=== PATIENT | male | born 1965 | race Caucasian/White ===

== ENCOUNTER 2019-04-23 12:07 | Inpatient (IN) | payer OTHER ==
[~2019-04-23] VITALS: Ht 182.9 cm; Wt 78.4 kg
[2019-04-23 12:08] VITALS: BP 105/61
[2019-04-23] MEDS ORDERED: LISINOPRIL2.5 MG PO (12:15)
[2019-04-23] MEDS ORDERED: ASA81BEC PO (12:15)
[2019-04-23] MEDS ORDERED: TOPROL XL25 MG PO (12:16)
[2019-04-23] MEDS ORDERED: LIPITOR40 MG PO (12:16)
[2019-04-23 12:26] LABS: BASOPHILS 0.7 % (0.0-2.0); EOSINOPHILS 2.3 % (0.0-3.0); HEMATOCRIT 45.1 % (42.0-52.0); HEMOGLOBIN 15.3 gm/dL (14.0-18.0); LYMPHOCYTES 30.2 % (24.0-44.0); MCH 31.4 pg (26.0-34.0); MCHC 33.8 g/dL (28.0-37.0); MCV 92.8 fL (80.0-100.0); MONOCYTES 8.2 % (1.0-8.0); PLATELET COUNT 223 thou/uL (150-400); POLYS 58.6 % (36.0-66.0); RBC 4.86 mil/uL (4.50-6.00); RDW 13.5 % (10.5-14.5); WBC 8.6 thou/uL (4.0-11.0)
[2019-04-23 12:37] LABS: ANION GAP 7 mmol/L (7-16); BUN 12 mg/dL (7-18); CHLORIDE 107 mmol/L (98-107); CO2 28 mmol/L (21-32); GLUCOSE 116 mg/dL (74-106); POTASSIUM 3.9 mmol/L (3.5-5.1); SODIUM 142 mmol/L (136-145)
[2019-04-23 12:47] LABS: ALBUMIN 3.5 g/dL (3.4-5.0); LIPASE 900 U/L (73-393); SGOT 26 U/L (15-37); SGPT 53 U/L (30-65); TOTAL BILIRUBIN 0.4 mg/dL (<0.1-1.0); TOTAL PROTEIN 7.2 g/dL (6.4-8.2); TROPONIN-I <0.06 ng/mL (<0.06)
--- NOTE | 2019-04-23 13:16 | EKG ---
[address] [place] [address] ELECTROCARDIOGRAM REPORT Name: MITUL MATHEW Room #: [facility] M.R.#: [id number] Admission: Attend Phys: Discharge: Date of : 69 Report #: [id number] THIS REPORT FOR: //name// [facility] ED Test Date: 2019-04-23 Test Time: 12:08:39 Pat Name: MITUL MATHEW Department: Room: Gender: M Bead Flipper: LUX : 1965 Requested By: Amira Navarrete Order Number: [id number] MD: Lm Burleson Measurements Intervals [place] Rate: 84 P: 90 PA: 179 QRS: 90 QRSD: 86 T: 67 QT: 388 QTc: 459 Interpretive Statements Sinus rhythm Borderline right axis deviation No previous ECG available for comparison Electronically Signed On 04-23-2019 13:15:47 BLUNGER MACHINE OPERATOR by Lm Burleson [email or web address] <ELECTRONICALLY SIGNED> By: Lm Burleson MD, [facility] 04/23/19 1315 1208 1208 Lm Burleson MD, FACC /EPI
--- NOTE | 2019-04-23 15:30 | EKG ---
[address] [place] [address] ELECTROCARDIOGRAM REPORT Name: MITUL MATHEW Room #: [facility] JANNET Hernandez#: [id number] Admission: 04/23/19 Attend Phys: Discharge: Date of : 69 Report #: [id number] THIS REPORT FOR: //name// [facility] ED Test Date: 2019-04-23 Test Time: 15:26:46 Pat Name: MITUL MATHEW Department: Room: Gender: Die Mounter: LUX : 1965 Requested By: Amira Navarrete Order Number: [id number] MD: Reggie Harrell Measurements Intervals [place] Rate: 72 P: 63 MO: 186 QRS: 86 QRSD: 87 T: 60 QT: 417 QTc: 457 Interpretive Statements Sinus rhythm Compared to ECG 04/23/2019 12:08:39 No significant changes Electronically Signed On 04-23-2019 15:30:02 FIRE PROTECTION ENGINEERING TECHNICIAN by Reggie Harrell [email or web address] <ELECTRONICALLY SIGNED> By: Reggie Harrell MD 04/23/19 1530 1526 1526 Reggie Harrell MD /DOMINGO
[2019-04-23 17:38] VITALS: BP 107/65
[2019-04-23 18:33] VITALS: BP 106/68
[2019-04-23 23:50] VITALS: BP 93/61
[2019-04-24 04:20] VITALS: BP 108/68
--- NOTE | 2019-04-24 05:05 | NUR ---
PT MAKING PROGRESS TOWARDS GOALS. INITIALLY REPORTED FEELING "QWEASY." THAT WAS RESOLVED WITH A DOSE OF ZOFRAN. INITIAL PAIN LEVEL OF HIS HEADACHE AND RUQ ABDOMINAL PAIN "PRESSURE" AND 8/10. PAIN DECREASED TO 5/10 (WHICH IS HIS GOAL) AFTER FIRST DOSE OF MORPHINE. SECOND DOSE OF MORPHINE GIVEN AT APPROXIMATELY MIDNIGHT FOR 7/10 ABD PAIN AND REDUCED TO 5/10 AFTER DOSE GIVEN. THIS AM PT REPORTING ABD PAIN IS STILL 5/10. DENIED ANY NAUSEA. "I FEEL HUNGRY AND I WANT SOME COFFEE."
[2019-04-24 05:41] LABS: HEMOGLOBIN 14.4 gm/dL (14.0-18.0); MCH 31.5 pg (26.0-34.0); MCHC 33.4 g/dL (28.0-37.0); MCV 94.3 fL (80.0-100.0); RBC 4.56 mil/uL (4.50-6.00); RDW 13.8 % (10.5-14.5); WBC 8.4 thou/uL (4.0-11.0)
[2019-04-24 05:52] LABS: ALBUMIN 2.9 g/dL (3.4-5.0); ANION GAP 6 mmol/L (7-16); BUN 11 mg/dL (7-18); CHLORIDE 109 mmol/L (98-107); CHOLESTEROL 135 mg/dL (<200); CO2 26 mmol/L (21-32); GLUCOSE 92 mg/dL (74-106); HDL CHOLESTEROL 30 mg/dL (>40); LDL CHOLESTEROL 89 mg/dL (<100); LIPASE 197 U/L (73-393); MAGNESIUM 2.2 mg/dL (1.8-2.4); POTASSIUM 4.6 mmol/L (3.5-5.1); SGOT 23 U/L (15-37); SGPT 46 U/L (30-65); SODIUM 141 mmol/L (136-145); TC:HDL 4.5 Ratio (Not establshd); TOTAL BILIRUBIN 0.4 mg/dL (<0.1-1.0); TOTAL PROTEIN 5.7 g/dL (6.4-8.2); TRIGLYCERIDE 83 mg/dL (<150); TROPONIN-I <0.06 ng/mL (<0.06); VLDL 17 mg/dL (<40)
[2019-04-24 06:38] LABS: SERUM ASSESSMENT Clear
[2019-04-24 08:00] VITALS: BP 99/71
[2019-04-24 15:55] VITALS: BP 103/64
--- NOTE | 2019-04-24 15:58 | NUR ---
0930 pt refuse morning meds. pt educated on rationale for meds, continue to refuse. MD ZAMORA aware. pt refuse most care throughout the shift. education reinforced.
[2019-04-24 18:02] VITALS: BP 103/64
--- NOTE | 2019-04-24 18:08 | NUR ---
1805 PT refuse to eat dinner for [employer]. NOTIFIED. DISCHARGE INTRUCTION GIVEN TO PT AND EDUCATED. PT REFUSE WHEELCHAIR TO BE TRANSPORTED FOR DISCHAGED.EDUCATION REINFORCED.
== END 2019-04-24 18:13 | disposition home or self-care (01) | DRG 440 ==
LOC: ER 12:07 → 3W 15:42 → EROBS 15:42 → 3W 18:23
PROVIDERS: Nurse Practitioner Family; ADMIT Internal Medicine
DX: K85.90 Acute pancreatitis without necrosis or infection, unspecified (principal); I10 Essential (primary) hypertension; E78.5 Hyperlipidemia, unspecified; F17.210 Nicotine dependence, cigarettes, uncomplicated; I25.10 Atherosclerotic heart disease of native coronary artery without angina pectoris; Z79.82 Long term (current) use of aspirin; Z79.899 Other long term (current) drug therapy; Z28.21 Immunization not carried out because of patient refusal; I25.2 Old myocardial infarction
CPT/HCPCS: 10879